=== PATIENT | female | born 1960 | race Caucasian/White ===

== ENCOUNTER 2020-10-02 09:55 | Day surgery (SDC) | payer BC ==
[2020-10-02] MEDS ORDERED: LIDOCAINE HCL 2% 100 MG/5 ML IJ ONE (09:56)
[2020-10-02] MEDS ORDERED: Depo-Medrol 40 MG/ML IM ONE (09:56)
[2020-10-02] MEDS ORDERED: Lactated Ringers 1,000 ML IV ONE (16:27)
--- NOTE | 2020-10-02 17:39 | XRAY ---
8 seconds fluoroscopy time in surgery for bilateral L4-S1 MBB.
== END 2020-10-02 11:35 | disposition home or self-care (01) ==
LOC: SDC-PAIN 09:55
PROVIDERS: ATTEND Psychiatry & Neurology Pain Medicine
DX: M47.816 Spondylosis without myelopathy or radiculopathy, lumbar region (principal); E11.9 Type 2 diabetes mellitus without complications; I10 Essential (primary) hypertension; G35 Multiple sclerosis; G47.30 Sleep apnea, unspecified; G25.81 Restless legs syndrome; Z79.899 Other long term (current) drug therapy; F41.8 Other specified anxiety disorders
CPT/HCPCS: 64493; 64494; 72020; 77002; 82947; J1030

== ENCOUNTER 2020-11-06 09:35 | Day surgery (SDC) | payer BC ==
[2020-11-06] MEDS ORDERED: BUPIVACAINE 0.5% VIAL IJ ONE (09:36)
[2020-11-06] MEDS ORDERED: Depo-Medrol 40 MG/ML IM ONE (09:36)
[2020-11-06] MEDS ORDERED: DIPRIVAN 200 MG/20 ML IV ONE (10:52)
--- NOTE | 2020-11-06 14:51 | XRAY ---
Indication: Bilateral L4-S1 MBB. Intraoperative fluoroscopy provided for 15 seconds. Single digital spot image submitted for interpretation demonstrates posterior needle tips projecting over the expected left and right L4-S1 nerve roots. Correlate with intraoperative findings/report.
--- NOTE | 2020-11-06 15:06 | XRAY ---
15 seconds of fluoroscopy was used in surgery for a bilateral L4-L5, L5-S1 MBB
[2020-11-06] MEDS ORDERED: Lactated Ringers 1,000 ML IV ONE (16:01)
== END 2020-11-06 11:15 | disposition home or self-care (01) ==
LOC: SDC-PAIN 09:35
PROVIDERS: ATTEND Psychiatry & Neurology Pain Medicine
DX: M47.816 Spondylosis without myelopathy or radiculopathy, lumbar region (principal); F41.9 Anxiety disorder, unspecified; F32.9 Major depressive disorder, single episode, unspecified; I10 Essential (primary) hypertension; G35 Multiple sclerosis; G47.30 Sleep apnea, unspecified; E11.9 Type 2 diabetes mellitus without complications; G25.81 Restless legs syndrome; Z79.899 Other long term (current) drug therapy
CPT/HCPCS: 64493; 64494; 72020; 77002; 82947; J1030; J2704

== ENCOUNTER 2020-12-18 09:22 | Day surgery (SDC) | payer BC ==
[2020-12-18] MEDS ORDERED: BUPIVACAINE 0.5% VIAL IJ ONE ×2 (09:23)
[2020-12-18] MEDS ORDERED: Depo-Medrol 40 MG/ML IM ONE (09:23)
[2020-12-18] MEDS ORDERED: DIPRIVAN 200 MG/20 ML IV ONE (10:30)
--- NOTE | 2020-12-18 11:32 | XRAY ---
Indication: Right L4-S1 RFA. Intraoperative fluoroscopy provided for 57 seconds. 3 digital spot image submitted for interpretation demonstrates posterior needle tips projecting over the expected right L4-S1 nerve roots. Correlate with intraoperative findings/report.
--- NOTE | 2020-12-18 11:40 | XRAY ---
57 seconds fluoroscopy time in surgery for right L4-S1 RFA.
[2020-12-18] MEDS ORDERED: Lactated Ringers 1,000 ML IV ONE (11:41)
== END 2020-12-18 11:11 | disposition home or self-care (01) ==
LOC: SDC-PAIN 09:22
PROVIDERS: ATTEND Psychiatry & Neurology Pain Medicine
DX: M47.816 Spondylosis without myelopathy or radiculopathy, lumbar region (principal); E11.9 Type 2 diabetes mellitus without complications; Z79.899 Other long term (current) drug therapy
CPT/HCPCS: 64635; 64636; 72100; 77002; 82947; J1030; J2704

== ENCOUNTER 2021-01-01 10:38 | Day surgery (SDC) | payer BC ==
[2021-01-01] MEDS ORDERED: BUPIVACAINE 0.5% VIAL IJ ONE (10:39)
[2021-01-01] MEDS ORDERED: Xylocaine 1% Vial 30 ML PF IJ ONE (10:39)
[2021-01-01] MEDS ORDERED: Depo-Medrol 40 MG/ML IM ONE (10:39)
[2021-01-01] MEDS ORDERED: DIPRIVAN 200 MG/20 ML IV ONE (12:15)
--- NOTE | 2021-01-01 14:38 | XRAY ---
Indication: Left L4-S1 RFA. Intraoperative fluoroscopy provided for 50 seconds. 3 digital spot image submitted for interpretation demonstrates posterior needle tips projecting over the expected left L4-S1 nerve roots. Correlate with intraoperative findings/report.
--- NOTE | 2021-01-01 14:42 | XRAY ---
50 seconds fluoroscopy time in surgery for left L4-S1 RFA.
[2021-01-01] MEDS ORDERED: Lactated Ringers 1,000 ML IV ONE (16:35)
== END 2021-01-01 12:44 | disposition home or self-care (01) ==
LOC: SDC-PAIN 10:38
PROVIDERS: ATTEND Psychiatry & Neurology Pain Medicine
DX: M47.817 Spondylosis without myelopathy or radiculopathy, lumbosacral region (principal); E11.9 Type 2 diabetes mellitus without complications; Z79.899 Other long term (current) drug therapy
CPT/HCPCS: 64635; 64636; 72100; 77002; 82947; J1030; J2001; J2704